=== PATIENT | male | born 1995 | race Two or more races ===

== ENCOUNTER 2019-05-12 08:19 | Emergency (ER) | payer SELFPAY ==
[~2019-05-12] VITALS: Ht 175.3 cm; Wt 100.0 kg
[2019-05-12] MEDS ORDERED: METHOCARBAMOL 500 MG TABLET PO ONE (09:00)
[2019-05-12] MEDS ORDERED: KETOROLAC TROMETHAMINE 60 MG/2 ML VIAL IM ONE (09:00)
[2019-05-12 10:45] VITALS: BP 143/89
== END 2019-05-12 11:12 | disposition home or self-care (01) ==
LOC: EMS 08:21
DX: S20.211A Contusion of right front wall of thorax, initial encounter (principal); S40.011A Contusion of right shoulder, initial encounter; S60.211A Contusion of right wrist, initial encounter; S60.221A Contusion of right hand, initial encounter; R03.0 Elevated blood-pressure reading, without diagnosis of hypertension; Y04.2XXA Assault by strike against or bumped into by another person, initial encounter; Y93.89 Activity, other specified; Y92.410 Unspecified street and highway as the place of occurrence of the external cause; Y99.8 Other external cause status
CPT/HCPCS: 71110; 73110; 73130; 96372; 99283; J1885